=== PATIENT | female | born 1955 | race American Indian/Alaskan Native ===

== ENCOUNTER 2021-01-11 07:29 | Day surgery (SDC) | payer MEDICARE ==
[2021-01-11] MEDS ORDERED: ASPIRIN EC 325 MG TAB PO ONE (08:28)
[2021-01-11 08:59] LABS: Basophils # (Auto) 0.1 K/mm3 (0.0-0.1); Basophils % (Auto) 1.1 % (0.0-1.8); Eosinophils # (Auto) 0.6 K/mm3 (0.0-0.4); Eosinophils % (Auto) 9.3 % (0.0-4.3); Hematocrit 39.3 % (30.3-42.9); Hemoglobin 13.8 gm/dl (10.1-14.3); Lymphocytes # (Auto) 1.8 K/mm3 (1.2-5.4); Lymphocytes % (Auto) 28.2 % (13.4-35.0); Mean Corpuscular HGB Conc 35 % (30-34); Mean Corpuscular Volume 90 fl (79-97); Monocytes # (Auto) 0.8 K/mm3 (0.0-0.8); Monocytes % (Auto) 12.3 % (0.0-7.3); Platelet Count 262 K/mm3 (140-440); Red Blood Count 4.38 M/mm3 (3.65-5.03); Red Cell Distribution Width 13.1 % (13.2-15.2)
[2021-01-11] MEDS ORDERED: SODIUM CHLORIDE 0.9% 500 ML 500 ML IV SCH (09:00)
[2021-01-11 09:09] LABS: INR 0.93 (0.87-1.13)
[2021-01-11 09:10] LABS: Partial Thromboplastin Time 24.7 Sec. (24.2-36.6)
[2021-01-11] MEDS ORDERED: HEPARIN/NS 5000 UNIT/500ML 1,000 ML IR ONE (09:24)
[2021-01-11] MEDS ORDERED: NITROGLYCERIN SYRINGE 3 ML ONE (10:00)
[2021-01-11 10:04] LABS: Blood Urea Nitrogen 18 mg/dL (7-17); Calcium 10.2 mg/dL (8.4-10.2); Hemolysis Index 3
[2021-01-11 10:12] LABS: BUN/Creatinine Ratio 30
[2021-01-11] MEDS: fentaNYL 100 MCG/2 ML INJ ONE ×2 (10:59→11:21)
[2021-01-11] MEDS: MIDAZOLAM 2 MG/2 ML INJ ONE ×2 (10:59→11:21)
[2021-01-11] MEDS: HEPARIN 10,000 UNITS/10 ML VIAL ONE ×2 (11:00→11:28)
[2021-01-11] MEDS: VERAPAMIL 5 MG/2 ML INJ ONE ×2 (11:00→11:28)
[2021-01-11] MEDS: LIDOCAINE (2%) 20 MG/1 ML VIAL 20 ML MDV INFILTRATI ONE ×2 (11:00→11:28)
[2021-01-11] MEDS: NITROGLYCERIN SYRINGE 3 ML ONE ×2 (11:01→11:28)
[2021-01-11] MEDS ORDERED: traMADol 50 MG TAB PO PRN (12:12)
[2021-01-11] MEDS ORDERED: SODIUM CHLORIDE 0.9% 1000 ML 1,000 ML IV SCH (12:15)
--- NOTE | 2021-01-11 12:22 | Discharge Summary ---
Short Stay Discharge Plan Activity: advance as tolerated Weight Bearing Status: Full Weight Bearing Diet: low fat, low cholesterol, low salt, diabetic Wound: keep clean and dry Special Instructions: smoking cessation, no heavy lifting (3 days), hold Metformin (48hrs only) Follow up with: TUNDE GERENE MD [Primary Care Provider] - 7 Days DAVID ELY MD [Staff Physician] - 7 Days
--- NOTE | 2021-01-11 12:53 | Cardiac Catherization Report ---
CARDIAC CATHETERIZATION REPORT REASON FOR PROCEDURE: The patient is a 65-year-old woman, asymptomatic cardiac status, but strong family history. During a routine outpatient assessment, she was found with a markedly elevated coronary calcium score, underwent a CT angiogram of the coronaries that was reportedly abnormal, prompting a recommendation for cardiac catheterization. Risks and benefits were discussed with the patient and she consented to proceed. PROCEDURES: 1. Left heart catheterization. 2. Selective left and right coronary angiography. 3. Left ventricular angiography. 4. Sedation time, start 11:27, end 11:46. The patient was prepped and draped in a sterile fashion after informed consent. The right radial cath site was prepped and draped after a negative Jose A's test. The right radial artery was entered using Seldinger technique followed by placement of a 6-Korean hydrophilic sheath. Routine radial cocktail was administered via the sheath. A selective left and right coronary angiography was performed, we used a Michael catheter for the left coronary angiography, and a #4 right Mauro for right coronary angiography. The right Mauro was used for left ventricular angiography. Left ventricular angiography was performed using a hand injection. The catheters were removed, sheath removed, and hemostasis achieved using a TR band. The patient was returned to the postprocedure unit in stable condition. There were no complications. FINDINGS: HEMODYNAMICS: Left ventricular end-diastolic pressure was 20, following coronary angiography. Ascending aortic pressure was 153/67. There was no significant pressure gradient on pullback across the aortic valve. CORONARY ANGIOGRAPHY: There was [id number], diffuse coronary calcification involving the left coronary vessels. The left main coronary artery was free of significant disease. The left anterior descending artery contained mild luminal irregularities in its proximal to mid segment, associated with heavy calcification. No significant obstructive lesions were noted in either LAD or diagonal branches. The circumflex artery also contained mild atherosclerosis of its proximal AV groove segment, also associated with heavy calcification. No significant obstructive lesions were noted in the circumflex system. The right coronary artery was a relatively small caliber, but dominant vessel, that contained mild atherosclerosis of its mid segment. There was normal left ventricular systolic function, ejection fraction 60%. CONCLUSIONS: 1. Heavy calcification of the coronary arteries, particularly the left coronary system. 2. Mild diffuse atherosclerosis with no significant obstructive lesions. 3. Normal left ventricular systolic function, ejection fraction 60%. RECOMMENDATION: Aggressive risk factor modification, medical therapy including statin therapy, close clinical monitoring and followup for symptoms and functional testing, stress testing as indicated. JOB# [id number] ISAIAH/CHARLY
[2021-01-11 14:54] VITALS: BP 153/77
--- NOTE | 2021-01-12 11:26 | Electrocardiograph Report ---
[facility] Test Date: 2021-01-11 Test Time: 08:48:08 Pat Name: ZACKERY ROGERS Department: Room: Gender: F Reception Specialist: LOWELL : 1955 Requested By: JOSIAH LEMA Order Number: [id number] Reading MD: Sebastian Weston Measurements Intervals [place] Rate: 70 P: 39 KS: 189 QRS: -23 QRSD: 82 T: 19 QT: 375 QTc: 405 Interpretive Statements Sinus rhythm Atrial premature complex No previous ECG available for comparison Electronically Signed On 01-12-2021 11:26:29 EDT by Sebastian Weston
== END 2021-01-11 07:30 | disposition home or self-care (01) ==
LOC: CATHLABREC 07:29
PROVIDERS: ATTEND Internal Medicine Cardiovascular Disease
DX: R94.39 Abnormal result of other cardiovascular function study (principal); E78.5 Hyperlipidemia, unspecified; I25.10 Atherosclerotic heart disease of native coronary artery without angina pectoris; I10 Essential (primary) hypertension; E66.9 Obesity, unspecified; E11.9 Type 2 diabetes mellitus without complications; Z79.899 Other long term (current) drug therapy; Z80.8 Family history of malignant neoplasm of other organs or systems; Z82.49 Family history of ischemic heart disease and other diseases of the circulatory system
CPT/HCPCS: 36415; 80048; 85025; 85610; 85730; 93005; 93458; 99156; C1887; C1894; J1644; J2250; J3010; J7040; Q9967